=== PATIENT | female | born 1945 | race Caucasian/White ===

== ENCOUNTER → 2020-12-30 | Outpatient (CLI) | payer OTHER ==
[2020-12-30 15:04] LABS: HEMOGLOBIN 12.7 gm/dl (12.3-15.3); RED BLOOD COUNT 4.28 M/UL (4.00-5.10); WHITE BLOOD COUNT 4.2 K/UL (4.5-11.0)
[2020-12-30 15:22] LABS: BUN/CREATININE RATIO 14 (0-10)
[2021-01-01 17:12] LABS: CHOLESTEROL, TOTAL 200 mg/dL (100-199); HDL SIZE 9.2 nm (>=9.2); HDL-C 54 mg/dL (>39); HDL-P (TOTAL) 35.7 umol/L (>=30.5); LARGE HDL-P 5.5 umol/L (>=4.8); LARGE VLDL-P 2.6 nmol/L (<=2.7); LDL SIZE 21.6 nm (>20.5); LDL SIZE 21.6 nm (>=20.8); LDL-C 129 mg/dL (0-99); LDL-P 1328 nmol/L (<1000); LP-IR SCORE 42 (<=45); SMALL LDL-P 398 nmol/L (<=527); TRIGLYCERIDES 93 mg/dL (0-149); VLDL SIZE 45.3 nm (<=46.6)
== END ==
LOC: LAB 14:14
PROVIDERS: Emergency Medicine
DX: E78.2 Mixed hyperlipidemia (principal); E87.0 Hyperosmolality and hypernatremia; R53.83 Other fatigue; I47.1 Supraventricular tachycardia; G40.89 Other seizures; Z79.899 Other long term (current) drug therapy
CPT/HCPCS: 36415; 80053; 80061; 83704; 84443; 84550; 85025